=== PATIENT | male | born 1970 | race Caucasian/White ===

== ENCOUNTER 2017-09-15 09:10 | Emergency (ER) | payer MEDICAID ==
[~2017-09-15] VITALS: Ht 584.7 cm; Wt 103.0 kg
[~2017-09-15 09:10] MED LIST: CYCL-1 PO; ERYT1OIN6 OP; HYDR-569 PO; NAP220T PO; ONDA8TAB9 PO
[2017-09-15 10:19] VITALS: BP 111/69
== END 2017-09-15 10:20 | disposition home or self-care (01) ==
LOC: ER 09:11
DX: S80.02XA Contusion of left knee, initial encounter (principal); Z88.8 Allergy status to other drugs, medicaments and biological substances; Z79.899 Other long term (current) drug therapy; W10.8XXA Fall (on) (from) other stairs and steps, initial encounter; Y93.01 Activity, walking, marching and hiking; Y92.89 Other specified places as the place of occurrence of the external cause; Y99.8 Other external cause status
CPT/HCPCS: 73564; 99284

== ENCOUNTER 2019-12-11 10:00 | Emergency (ER) | payer MEDICAID, OTHER ==
[~2019-12-11] VITALS: Ht 172.7 cm; Wt 100.9 kg
[~2019-12-11 10:00] MED LIST changes: +HYDR-4383 PO; -HYDR-569 PO
[2019-12-11 10:05] VITALS: BP 136/91
[2019-12-11] MEDS ORDERED: LIDOcaine 1% W/epiNEPHrine 1:200,000 10ml vial IJ ONE (10:15)
[2019-12-11] MEDS ORDERED: SULF1TAB49 PO (11:01)
[2019-12-11] MEDS ORDERED: CEPH-572 PO (11:01)
[2019-12-11] MEDS ORDERED: mupirocin 2% ointment 22GM TP STA (11:15)
== END 2019-12-11 11:30 | disposition home or self-care (01) ==
LOC: ER 10:01
DX: J34.0 Abscess, furuncle and carbuncle of nose (principal); Z98.890 Other specified postprocedural states; Z88.6 Allergy status to analgesic agent; Z88.8 Allergy status to other drugs, medicaments and biological substances; Z79.899 Other long term (current) drug therapy
CPT/HCPCS: 10060; 99283

== ENCOUNTER 2020-08-25 18:47 | Emergency (ER) | payer MEDICAID ==
[~2020-08-25] VITALS: Ht 170.2 cm; Wt 109.1 kg
[2020-08-25 19:18] VITALS: BP 130/86
[2020-08-25] MEDS ORDERED: LIDOcaine 1% W/epiNEPHrine 1:200,000 10ml vial IJ ONE (20:00)
[2020-08-25] MEDS ORDERED: SULF1TAB49 PO (20:30)
[2020-08-25] MEDS ORDERED: CEPH-585 PO (20:30)
== END 2020-08-25 21:08 | disposition home or self-care (01) ==
LOC: ER 18:47
DX: L02.211 Cutaneous abscess of abdominal wall (principal); Z98.890 Other specified postprocedural states; Z79.1 Long term (current) use of non-steroidal anti-inflammatories (NSAID); Z79.899 Other long term (current) drug therapy; Z88.8 Allergy status to other drugs, medicaments and biological substances
CPT/HCPCS: 10060; 99283

== ENCOUNTER 2022-11-03 14:19 | Emergency (ER) | payer MEDICAID ==
[~2022-11-03] VITALS: Ht 170.2 cm; Wt 109.0 kg
[2022-11-03] MEDS ORDERED: IBUP-1984 PO (15:42)
[2022-11-03] MEDS ORDERED: ketorolac trometh. 30mg/ml inj. IM ONE (15:45)
== END 2022-11-03 16:00 | disposition home or self-care (01) ==
LOC: ER 14:19
DX: M79.672 Pain in left foot (principal); Z88.6 Allergy status to analgesic agent; Z79.899 Other long term (current) drug therapy
CPT/HCPCS: 73630; 96372; 99283; J1885; A6449